=== PATIENT | female | born 1945 | race Caucasian/White ===

== ENCOUNTER 2025-08-21 22:04 | Emergency (ER) | payer MEDICARE, OTHER ==
[2025-08-21 22:37] LABS: BASOPHILS ABSOLUTE AUTO 0.01 10^3/uL (0.00-0.10); BASOPHILS PERCENT AUTO 0.1 % (0.0-1.0); EOSINOPHILS ABSOLUTE AUTO 0.04 10^3/uL (0.10-0.30); EOSINOPHILS PERCENT AUTO 0.4 % (1.0-3.0); IMMATURE GRAN ABSOLUTE AUTO 0.08 10^3/uL (0.00-0.04); IMMATURE GRAN PERCENT AUTO 0.8 % (0.0-0.4); LYMPHOCYTES ABSOLUTE AUTO 1.43 10^3/uL (1.00-4.00); LYMPHOCYTES PERCENT AUTO 14.6 % (20.0-40.0); MEAN PLATELET VOLUME 10.2 fL (7.4-10.4); MONOCYTES ABSOLUTE AUTO 0.63 10^3/uL (0.10-0.80); MONOCYTES PERCENT AUTO 6.4 % (2.0-8.0); NEUTROPHILS ABSOLUTE AUTO 7.59 10^3/uL (2.50-7.00); NEUTROPHILS PERCENT AUTO 77.7 % (50.0-70.0); PLATELET COUNT,PLT 339 10^3/uL (150-400); RED BLOOD CELL COUNT 5.60 10^6/uL (3.80-5.50); RED CELL DISTRIBUTION WIDTH 15.7 % (11.5-14.5); WHITE BLOOD CELL COUNT,WBC 9.78 10^3/uL (5.00-10.00)
[2025-08-21 22:56] LABS: ALANINE AMINOTRANSFERASE,ALT 28.0 U/L (14-63); ASPARTATE AMNIOTRANSFERASE,AST 51.0 U/L (15-37); BILIRUBIN TOTAL 0.7 mg/dL (0.2-1.0); CARBON DIOXIDE,CO2 28.7 mmol/L (21.0-32.0); CREATININE 2.16 mg/dL (0.51-1.17); EST CRCL DRUG DOSING (CG) 17.25 mL/min; GLUCOSE RANDOM 95.0 mg/dL (70-140); PROTEIN TOTAL,TP 8.1 g/dL (6.4-8.2)
[2025-08-21 23:00] LABS: CHLORIDE,CL 94.0 mmol/L (98-107); POTASSIUM,K 6.1 mmol/L (3.5-5.1); SODIUM,NA 135.0 mmol/L (136-145)
[2025-08-21 23:01] LABS: ESTIMATED GFR 23.0 mL/min (>=60)
[2025-08-21 23:02] LABS: BLOOD UREA NITROGEN,BUN 58.0 mg/dL (7-18)
[2025-08-21 23:37] LABS: APPEARANCE,URINE SLIGHTLY CLOUDY (CLEAR); GLUCOSE,URINE NEGATIVE (NEGATIVE); OCCULT BLOOD,URINE NEGATIVE (NEGATIVE)
[2025-08-21 23:44] LABS: EPITHELIAL CELLS,URINE RARE /LPF; YEAST,URINE MANY /HPF (NEGATIVE)
[2025-08-22] MEDS: LORazepam 2 MG/ML SDV IM ONE ×2 (00:29→03:23)
== END 2025-08-22 03:30 ==
LOC: KA.ED 22:04
DX: F03.B11 Unspecified dementia, moderate, with agitation (principal); I13.0 Hypertensive heart and chronic kidney disease with heart failure and stage 1 through stage 4 chronic kidney disease, or unspecified chronic kidney disease; N18.31 Chronic kidney disease, stage 3a; I50.42 Chronic combined systolic (congestive) and diastolic (congestive) heart failure; J44.9 Chronic obstructive pulmonary disease, unspecified; S81.812A Laceration without foreign body, left lower leg, initial encounter; S81.811A Laceration without foreign body, right lower leg, initial encounter; S41.112A Laceration without foreign body of left upper arm, initial encounter; S41.111A Laceration without foreign body of right upper arm, initial encounter; E11.22 Type 2 diabetes mellitus with diabetic chronic kidney disease; Z91.199 Patient's noncompliance with other medical treatment and regimen due to unspecified reason; Z91.030 Bee allergy status; Z88.0 Allergy status to penicillin; Z88.8 Allergy status to other drugs, medicaments and biological substances; Z79.82 Long term (current) use of aspirin; Z79.899 Other long term (current) drug therapy; Z79.4 Long term (current) use of insulin; X78.9XXA Intentional self-harm by unspecified sharp object, initial encounter; Y93.89 Activity, other specified
CPT/HCPCS: 36415; 80053; 81001; 84484; 85025; 93010; 96372; 99284; A4315; J1630; J2060